=== PATIENT | female | born 2000 | race Caucasian/White ===

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

== ENCOUNTER → 2018-02-10 11:47 | Outpatient (CLI) | payer MEDICAID ==
[2016-11-20 23:58] VITALS: BMI 25.5
[~2018-02-10 11:47] MED LIST: OMNICEF300 MG PO; ZOFRAN ODT4 MG/UDTAB PO
== END | disposition home or self-care (01) ==
LOC: D.US 11:00
DX: R10.2 Pelvic and perineal pain (principal)

== ENCOUNTER → 2018-09-29 18:14 | Outpatient (CLI) | payer MEDICAID ==
[2016-11-20 23:58] VITALS: BMI 25.5
[~2018-09-29 18:14] MED LIST changes: +PRENAVITE1 TAB PO
[2018-09-29 20:36] LABS: APPEARANCE CLEAR (CLEAR); BILIRUBIN NEGATIVE (NEGATIVE); COLOR YELLOW (YELLOW); GLUCOSE NEGATIVE (NEGATIVE); KETONE NEGATIVE (NEGATIVE); NITRITE NEGATIVE (NEGATIVE); PROTEIN NEGATIVE (NEGATIVE); UROBILINOGEN NORMAL (NORMAL)
== END | disposition home or self-care (01) ==
LOC: D.LDO 18:14
PROVIDERS: ATTEND Obstetrics & Gynecology
DX: O26.893 Other specified pregnancy related conditions, third trimester (principal); Z3A.37 37 weeks gestation of pregnancy

== ENCOUNTER → 2018-10-16 10:36 | Outpatient (CLI) | payer MEDICAID ==
[2016-11-20 23:58] VITALS: BMI 25.5
[~2018-10-16 10:36] MED LIST changes: +HYDROCODON-ACE1 EA10 PO; +IBUPROFEN600 MG PO
== END | disposition home or self-care (01) ==
LOC: D.LDO 10:36
PROVIDERS: ATTEND Obstetrics & Gynecology
DX: O35.9XX0 Maternal care for (suspected) fetal abnormality and damage, unspecified, not applicable or unspecified (principal)

== ENCOUNTER 2018-10-18 05:12 | Inpatient (IN) | payer MEDICAID ==
[~2018-10-18] VITALS: Ht 172.7 cm; Wt 83.9 kg
[~2018-10-18 05:12] MED LIST changes: -HYDROCODON-ACE1 EA10 PO; -IBUPROFEN600 MG PO
[2018-10-18 06:12] LABS: HEMATOCRIT 32.6 % (36.0-48.0); HEMOGLOBIN 11.2 g/dL (12-16); MCH 27.1 pg (26.0-34.0); MCHC 34.4 g/dL (31.0-37.0); MCV 78.7 fL (80.0-100.0); MEAN PLATELET VOLUME 9.2 fL (7.4-10.4); RBC 4.14 10x6/uL (4.00-5.40); WBC 11.9 10x3/uL (4.8-10.8)
[2018-10-18 06:38] VITALS: BP 113/55; Ht 172.7 cm; Wt 83.9 kg
[2018-10-18 07:33] LABS: APPEARANCE CLEAR (CLEAR); BILIRUBIN NEGATIVE (NEGATIVE); COLOR YELLOW (YELLOW); GLUCOSE NEGATIVE (NEGATIVE); KETONE NEGATIVE (NEGATIVE); NITRITE NEGATIVE (NEGATIVE); PROTEIN NEGATIVE (NEGATIVE); SPECIFIC GRAVITY 1.015 (1.005-1.020); UROBILINOGEN NORMAL (NORMAL)
--- NOTE | 2018-10-18 11:35 | NUR ---
PT RCVD VIA BED FROM [facility]. PT AAOx3, IV INFUSING PITOCIN ORDERED TO RIGHT HAND PIV, SITE C/D/I. FF, ML, U/2. ABD DSG C/D/I. SMALL RUBRA LOCHIA, NO CLOTS. SALDAÑA CATH DRAINING CLEAR YELLOW URINE. 325ML EMPTIED FROM UROMETER. SCD'S ON LE BILAT AND ON PUMP. PT RATING PAIN APPROX 5/10. WILL SET UP EVENT COORDINATOR MARKETING AND SALES ORDERED.
--- NOTE | 2018-10-18 11:55 | NUR ---
DR BARKLEY PHONED TO VERIFY IF HE WANTS PT TO HAVE TORADOL IV OR NOT. ORDER RECIEVED FOR TORADOL 30MG IVP Q6HPRN PAIN. WILL PROCEED ORDERED.
--- NOTE | 2018-10-18 12:22 | NUR ---
TORADOL ADMIN ORDERED AT 1211. RIDING INSTRUCTOR SET UP AT 1222, SEE EMAR FOR DOC. PT AND FAMILY INSTRUCTED RIDING INSTRUCTOR BUTTON IS FOR PT TO PRESS ONLY, UNDERSTANDING VERBALIZED. FF, ML, U/2. SMALL RUBRA LOCHIA. 125ML CLEAR YELLOW URINE EMPTIED FROM UROMETER. ICE WATER GIVEN, PT SETTING UP CLEAR LIQUID DIET TRAY. DENIES NEEDS. SRUX2, CL IN REACH.
--- NOTE | 2018-10-18 13:07 | NUR ---
FF, SCANT RUBRA LOCHIA, NO CLOTS. PERIPAD CHANGED. 50ML CLEAR YELLOW URINE EMPTIED FROM UROMETER. PT DENIES NEEDS, VISITING WITH FAMILY. SRUx2, CL IN REACH.
--- NOTE | 2018-10-18 15:00 | NUR ---
THIS RN TO ROOM FOR PT CHECK. PT SITTING UP IN BED, VISITING WITH FAMILY. PT DENIES PAIN OR ANY NEEDS. SRUx2, CL IN REACH. WILL CONT TO MONITOR.
--- NOTE | 2018-10-18 16:09 | NUR ---
PT ADMIN ZOFRAN FOR C/O NAUSEA, SEE EMAR FOR DOC. EMESIN BAG GIVEN AND COOL WET CLOTH PROVIDED. PT VERBALIZES RELIEF.
[2018-10-18 16:23] LABS: BASOPHILS 0.1 % (0-2); EOSINOPHILS 0.1 % (0-7); HEMATOCRIT 32.9 % (36.0-48.0); HEMOGLOBIN 11.3 g/dL (12-16); IMMATURE GRANULOCYTES 0.4 % (0-5); MCHC 34.3 g/dL (31.0-37.0); MCV 78.7 fL (80.0-100.0); MEAN PLATELET VOLUME 9.3 fL (7.4-10.4); MONOCYTES 3.8 % (2-11); NEUTROPHILS 90.6 % (40-80); PLATELET COUNT 215 10x3/uL (130-400); RBC 4.18 10x6/uL (4.00-5.40); RDW 12.9 % (11.5-14.5)
[2018-10-18 16:30] LABS: WBC 17.9 10x3/uL (4.8-10.8)
--- NOTE | 2018-10-18 18:40 | NUR ---
THIS RN TO ROOM FOR PT CHECK. PT DENIES PAIN OR NEEDS. 350ML CLEAR YELLOW URINE EMPTIED FROM UROMETER. FF, ML, U/2. SMALL RUBRA LOCHIA. BED PADS AND PERIPADS CHANGED. SRUx2, CL IN REACH.
--- NOTE | 2018-10-18 19:00 | NUR ---
SEE PT'S PAPER CHART FOR VS OBTAINED AND MONITORED BY THIS RN.
[2018-10-18 20:25] VITALS: BP 106/59
--- NOTE | 2018-10-18 20:25 | NUR ---
shift assessment completed, see flowsheet
--- NOTE | 2018-10-18 21:00 | NUR ---
PATIENTS MOTHER TO DESK STATING THAT PT NEEDS HELP WITH , NURSERY INFORMED AT THIS TIME.
--- NOTE | 2018-10-18 22:16 | NUR ---
ICE,CRACKERS AND A CLEAN GOWN PROVIDED PER PT REQUEST. NO FURTHER NEEDS IDENTIFIED. WILL CONTINUE TO MONITOR.
--- NOTE | 2018-10-18 23:58 | NUR ---
PATIENT SITTING UP IN BED, PERICARE DONE WITH SMALL GRAPE SIZED BLOOD CLOT NOTED, PADS CHANGED AND PT REPOSITIONED TO LEFT SIDE. SALDAÑA NOTED TO HAVE 150ML CLEAR YELLOW URINE IN CHAMBER
--- NOTE | 2018-10-19 02:06 | NUR ---
PT SLEEPING, EASILY AROUSED TO VERBAL. PAD WITH MINIMAL AMT OF BLEEDING NOTED, FOLEYCATHETER EMPTIED OF 350ML CLEAR YELLOW URINE. VS WNL, FRESH ICE PACK PLACED TO ABDOMEN AND TORADOL 30MG SLOW IVP PER MD ORDERS FOR PAIN 05/21. BED REMAINS LOCKED IN LOW POSITION, SIDE RAILS UPX2, CALL ALCAZAR AND TRAY TABLE IN REACH. WILL CONTINUE TO MONITOR.
--- NOTE | 2018-10-19 04:19 | NUR ---
PATIENT LYING QUIETLY IN BED WITH EYES CLOSED. RESPIRATIONS AT EASE. PATIENT DENIES PAIN AT THIS TIME. VITAL SIGNS DONE. PATIENT DENIES ANY NEEDS OR CONCERNS. BED IN LOWEST POSITION, SIDE RAILS UP X 2, C/L AND WATER WITHIN REACH.
[2018-10-19 04:20] VITALS: BP 99/56
[2018-10-19 06:20] LABS: BASOPHILS 0.1 % (0-2); EOSINOPHILS 0.4 % (0-7); HEMATOCRIT 29.5 % (36.0-48.0); HEMOGLOBIN 9.9 g/dL (12-16); IMMATURE GRANULOCYTES 0.3 % (0-5); LYMPHOCYTES 13.7 % (15-50); MCH 26.6 pg (26.0-34.0); MCHC 33.6 g/dL (31.0-37.0); MCV 79.3 fL (80.0-100.0); MEAN PLATELET VOLUME 9.2 fL (7.4-10.4); NEUTROPHILS 77.5 % (40-80); PLATELET COUNT 188 10x3/uL (130-400); RBC 3.72 10x6/uL (4.00-5.40); RDW 12.9 % (11.5-14.5)
[2018-10-19 06:28] LABS: WBC 12.2 10x3/uL (4.8-10.8)
[2018-10-19 07:14] LABS: RAPID PLASMA REAGIN Non Reactive (Non Reactive)
[2018-10-19 08:20] VITALS: BP 114/63
--- NOTE | 2018-10-19 09:19 | NUR ---
Neo Wilma 10/19/18 S: Patient states is going great.This is her first baby and she thinks baby is latching good. No pain or discomfort when latches. Denies questions about at this time. Father of states baby is doing great with eating he eats about every 2 hours, how long he latches varies per feeding. O: Patient sitting on side of bed holding . Family member at bedside. Praised for . How are things going with . How can I help with ? Informed patient takes time, practice, and patience. It is normal for infant to want to nurse often. Explained normal feeding patterns for a breastfed infant. Explained feeding cues and encouraged patient to latch when showing feeding cues this will help with establishing your milk supply. Explained breastmilk composition, positions, how to verify is latched correctly, and supply and demand. Asked if any pain or discomfort when latching infant to the breast? Please ask for help as needed with from nusing staff. A: Patient appears confident with due to no questions or concerns. P: Continue to support during hosptial visit. Vince Peguero, CLC
--- NOTE | 2018-10-19 09:45 | NUR ---
PT UP TO BR, GAIT SLOW AND STEADY. PT VOIDS 450 ML'S IN [place] HAT. PERICARE PER SELF. PANTIES AND PADS ON. BACK TO BED. SR UP X2, CALL LIGHT AND PHONE WITHIN REACH.
--- NOTE | 2018-10-19 11:30 | NUR ---
pt up to br, gait slow and steady. pt voids 525 ml's in [place] hat, pericare done per self with warm wet washcloths, peripanties/pads on. back to bed, visitors at bedside. pt denies all needs at this time. srup x 2, call light and phone within reach.
[2018-10-19 14:41] VITALS: BP 107/56
--- NOTE | 2018-10-19 15:00 | NUR ---
pt states pain is now "one" out of 10, to incisional area, "it pulls a little and [place] a little". large ice water served to pt. pt transferred to #[id number] by wheelchair, oriented to room. to bed, family assists in transferring personal belongings. pt denies all needs. srup x2, call light and phone within reach.
--- NOTE | 2018-10-19 19:40 | NUR ---
PT CALLED OUT FOR SUPPLIES FOR A SHOWER, IV COVERED AND PT ASSISTED TO SHOWER.
--- NOTE | 2018-10-19 20:50 | NUR ---
PT LYING IN BED HOLDING INFANT, DENIES PAIN OR NEEDS AT THIS TIME. WILL CONTINUE TO MONITOR.
--- NOTE | 2018-10-19 21:15 | NUR ---
PATIENT UP TO BATHROOM, STATES THAT SHE HAS ENOUGH PADS AND PANTIES. DENIES NEEDS, WILL CONTINUE TO MONITOR.
--- NOTE | 2018-10-19 22:05 | NUR ---
PT AT THIS TIME, TORADOL ADMINISTERED PER PT REQUEST. SEE EMAR
[2018-10-19 22:30] VITALS: BP 108/47
--- NOTE | 2018-10-19 22:30 | NUR ---
SHIFT ASSESSMENT COMPLETED, SEE FLOWSHEET.
--- NOTE | 2018-10-19 23:40 | NUR ---
BLANKETS AND PILLOWS PROVIDED PER PT REQUEST.
--- NOTE | 2018-10-20 01:25 | NUR ---
PATIENT SITTING UP IN BED , DENIES PAIN OR NEEDS AT THIS TIME. PILLOW PROVIDED FOR SIGNICIANT OTHER.
--- NOTE | 2018-10-20 03:30 | NUR ---
PT RESTING QUIETLY WITH EYES CLOSED, RESPIRATIONS EVEN AND NON LABORED. NO DISTRESS NOTED. WILL CONTINUE TO MONITOR.
--- NOTE | 2018-10-20 04:16 | NUR ---
INFANT TO ROOM VIA OPEN CRIB AND ID VERIFIED. PT DENIES NEEDS AT THIS TIME, WILL CONTINUE TO MONITOR,
--- NOTE | 2018-10-20 06:20 | NUR ---
PT LYING IN BED WITH EYES OPEN, RESPIRATIONS EVEN AND NON LABORED. PT DENIES NEEDS AT THIS TIME, WILL CONTINUE TO MONITOR
[2018-10-20 08:00] VITALS: BP 104/64
--- NOTE | 2018-10-20 08:00 | NUR ---
to pt's room, am assessment completed. abdomen palpates soft, fundus firm, u/2, scant rubra lochia, no clots. pt denies passing clots or heavy bleeding. pain medication schedule explained to pt. see emar for all meds adm by this rn. large mug of ice water served to pt, as pt has regular breakfast on bedside table. pt denies all other needs at this time. srup x2, call light and phone within reach.
--- NOTE | 2018-10-20 11:45 | NUR ---
dietary serves regular lunch tray, pt denies all needs. pt ambulatory in room, pt reports no problems or issues voiding, pericare done per self. pt denies all needs at this time. sr up x2, call light and phone within reach.
[2018-10-20 13:00] VITALS: BP 104/68
--- NOTE | 2018-10-20 13:30 | NUR ---
dr. crenshaw to pt's room, rounds made.
--- NOTE | 2018-10-20 14:30 | NUR ---
discharge instructions explained to pt, pt dneies all questions. peripads/panties provided to pt. copies of d/c instructions, pp instructions, prescriptions given, and appt card to pt for d/c. medication times reviewed with pt. pt dressed and preparing for discharge. family at bedside. sr up x2, call light and phone within reach.
--- NOTE | 2018-10-20 14:41 | NUR ---
tdap 0.5 ml given to left deltoid, see emar.
--- NOTE | 2018-10-20 14:42 | NUR ---
toradol 30 mg sivp diluted with 5 mls ns given after iv flushed with 10 cc's ns before med adm. sl flushed with 10 mls ns after med adm. sl then dc'd with cath intact. pt satya well. pt now preparing for discharge.
--- NOTE | 2018-10-20 15:00 | NUR ---
pt off unit in stable condition by wheelchair, by volunteer, with family, to private vehicle. fob carrying infant in car seat to vehicle for discharge.
[2018-10-20] MEDS ORDERED: IBUPROFEN600 MG PO (15:06)
[2018-10-20] MEDS ORDERED: HYDROCODON-ACE1 EA10 PO (15:06)
== END 2018-10-20 15:00 | disposition home or self-care (01) | DRG 788 ==
LOC: D.LD 05:12
PROVIDERS: ADMIT Obstetrics & Gynecology; ATTEND Obstetrics & Gynecology
PROC: 3E033VJ Introduction of Other Hormone into Peripheral Vein, Percutaneous Approach (ICD-10-PCS; 2018-10-18)
PROC: 10D00Z1 Extraction of Products of Conception, Low, Open Approach (ICD-10-PCS; principal; 2018-10-18 10:00)
DX: O99.344 Other mental disorders complicating childbirth (principal); Z3A.40 40 weeks gestation of pregnancy; Z37.0 Single live birth; O76 Abnormality in fetal heart rate and rhythm complicating labor and delivery

== ENCOUNTER 2020-07-22 13:36 | Outpatient (CLI) | payer MEDICAID ==
[~2020-07-22 13:36] MED LIST changes: +HYDROCODON-ACE1 EA10 PO; +IBUPROFEN600 MG PO
[2020-07-22 15:38] LABS: BILIRUBIN NEGATIVE (NEGATIVE); KETONE NEGATIVE (NEGATIVE); NITRITE NEGATIVE (NEGATIVE); UROBILINOGEN NORMAL mg/dL (< 2)
== END 2020-07-22 16:00 | disposition home or self-care (01) ==
LOC: D.LDO 13:36
PROVIDERS: ATTEND Student in an Organized Health Care Education/Training Program
DX: O26.899 Other specified pregnancy related conditions, unspecified trimester (principal); R10.9 Unspecified abdominal pain